=== PATIENT | female | born 1945 | race Caucasian/White ===

== ENCOUNTER 2016-11-05 18:31 | Emergency (ER) | payer SELFPAY ==
[2016-11-05] MEDS ORDERED: Morphine INJ* 4 MG/ML 1 ML CARPUJECT IV ONE ×2 (20:42→23:45)
[2016-11-05] MEDS ORDERED: Ondansetron INJ* 2 MG/ML VIAL IV ONE (20:43)
[2016-11-05 20:55] LABS: Hematocrit 45 % (35-47); Hemoglobin 15.7 g/dl (12.0-16.0); Mean Corpuscular HGB Conc 35 g/dl (31-36); Mean Corpuscular Hemoglobin 31 pg (27-31); Mean Corpuscular Volume 88 fL (80-97); Mean Platelet Volume 8 um3 (7.4-10.4); Red Blood Count 5.09 10^6/ul (4.0-5.4); Red Cell Distribution Width 14 % (10.5-15); White Blood Count 9.4 10^3/ul (3.5-10.8)
[2016-11-05 21:09] LABS: Albumin 4.3 g/dL (3.2-5.2); BUN/Creatinine Ratio 12.7 (8-20); Calcium 9.9 mg/dL (8.6-10.3); EGFR Non-African American 81.6 (>60); Globulin 2.9 g/dL (2-4); Potassium 3.9 mmol/L (3.5-5.0); Total Bilirubin 1.1 mg/dL (0.2-1.0); Total Protein 7.2 g/dL (6.4-8.9)
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
[2016-11-05] MEDS ORDERED: Iohexol 300* (CONTRAST) 10 ML SDV IV ONE (22:27)
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
[2016-11-05] MEDS ORDERED: Mometasone/Formoter 200/5 MDI INH SCH (23:45)
[2016-11-06 00:53] LABS: Hematocrit 43 % (35-47); Hemoglobin 14.9 g/dl (12.0-16.0); Mean Corpuscular HGB Conc 35 g/dl (31-36); Mean Corpuscular Hemoglobin 31 pg (27-31); Mean Corpuscular Volume 88 fL (80-97); Mean Platelet Volume 7 um3 (7.4-10.4); Red Blood Count 4.84 10^6/ul (4.0-5.4); Red Cell Distribution Width 14 % (10.5-15); White Blood Count 9.7 10^3/ul (3.5-10.8)
[2016-11-06] MEDS ORDERED: oxyCODONE/Acetamin 5/325 MG* TAB PO ONE (01:09)
[2016-11-06 02:00] VITALS: BP 139/62
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
== END 2016-11-06 02:00 | disposition home or self-care (01) ==
LOC: ED 18:31
DX: R07.89 Other chest pain (principal); M79.641 Pain in right hand; R10.12 Left upper quadrant pain; S60.221A Contusion of right hand, initial encounter; V59.49XA Driver of pick-up truck or van injured in collision with other motor vehicles in traffic accident, initial encounter; Y92.9 Unspecified place or not applicable; J44.9 Chronic obstructive pulmonary disease, unspecified; Z88.2 Allergy status to sulfonamides; J45.909 Unspecified asthma, uncomplicated; I25.10 Atherosclerotic heart disease of native coronary artery without angina pectoris; K44.9 Diaphragmatic hernia without obstruction or gangrene; R16.0 Hepatomegaly, not elsewhere classified; K57.90 Diverticulosis of intestine, part unspecified, without perforation or abscess without bleeding
CPT/HCPCS: 36415; 70450; 71260; 72125; 74177; 80053; 85025; 96374; 96375; 96376; 99283; A9270-GY; J2270; J2405; Q9967

== ENCOUNTER 2019-04-23 13:30 | Day surgery (SDC) | payer MEDICARE ==
[~2019-04-23 13:30] MED LIST: Buffered Lidocaine 1% SYRIN* 1 ML/SYRINGE INTRADERM ONE; Lactated Ringers 1000 ML Bag* 1,000 ML IV SCH
[2019-04-23] MEDS ORDERED: ceFAZolin 2 GM in NS PREMIX(*) 2 GM/100 ML BAG IVPB ONE (14:20)
[2019-04-23] MEDS ORDERED: Heparin VIAL(*) 5000 UNITS/ML VIAL (FIVE THOUSAND) ONE (14:20)
[2019-04-23] MEDS ORDERED: KETAMINE HCL* 50 MG/ML 10 ML VIAL ONE ×2 (15:05→17:15)
[2019-04-23] MEDS ORDERED: Midazolam* 1 MG/ML 2 ML VIAL (2 MG) ONE ×2 (15:05→17:15)
[2019-04-23] MEDS ORDERED: Propofol* 500 MG/50 ML BTL ONE (15:05)
[2019-04-23] MEDS ORDERED: Naloxone* 0.4 MG/ML 1 ML VIAL IV PRN (15:24)
[2019-04-23] MEDS ORDERED: Metoclopramide IV* 5 MG/ML 2 ML VIAL IV PRN (15:24)
[2019-04-23] MEDS ORDERED: Acetaminophen TAB* 325 MG PO PRN (15:24)
[2019-04-23] MEDS ORDERED: fentaNYL* 50 MCG/ML 2 ML VIAL (100 MCG VIAL) IV PRN (15:24)
[2019-04-23] MEDS ORDERED: oxyCODONE TAB* 5 MG TAB PO PRN (15:24)
[2019-04-23] MEDS ORDERED: fentaNYL* 50 MCG/ML 2 ML VIAL (100 MCG VIAL) ONE (17:15)
[2019-04-23] MEDS ORDERED: Bupivacaine 0.25% SDV PF* 10 ML VIAL INJ ONE (18:06)
[2019-04-23] MEDS ORDERED: Gelfoam 12-7 ADSORBABL SPONGE ONE ×3 (18:06→18:53)
[2019-04-23] MEDS ORDERED: Bacitracin OINTMENT* 0.5% 0.5 oz TUBE ONE (18:52)
[2019-04-23] MEDS ORDERED: Labetalol IV* 5 MG/ML 20 ML VIAL ONE (18:54)
[2019-04-23] MEDS ORDERED: Propofol* 10 MG/ML 20 ML BTL ONE (18:54)
[2019-04-23] MEDS ORDERED: Lidocaine 2% PF * 5 ML VIAL ONE (18:54)
[2019-04-23 19:28] VITALS: BP 160/102
--- NOTE | 2019-04-24 01:57 | OP ---
DATE OF OPERATION: 04/23/19 - [facility] DATE OF : 49 ATTENDING SURGEON: Jesus Manuel Paris MD. BODY MECHANIC: No first helper. PRE-OP DIAGNOSIS: Rectal mass. POST-OP DIAGNOSIS: Rectal polyp. OPERATIVE PROCEDURE: Rectal examination under anesthesia, transanal excision of rectal polyp. INDICATIONS FOR PROCEDURE: Noted polyp on colonoscopy. Unable to evaluate in the office due to discomfort.. Risks including, but not limited to, bleeding, infection explained to the patient who seemed to understand and agreed to the procedure and all questions were answered. DESCRIPTION OF PROCEDURE: The patient was taken to the operating room, placed in the prone ivy-knife position. Sedation was given by the anesthesiologist, MAC anesthesia. Preoperative antibiotics were given. The perianal area was prepped and draped. A time-out was performed indicating correct patient, correct procedure. Digital rectal examination revealed no palpable masses. The rectal retractor was placed in the rectum and all 4 quadrants were evaluated. Approximately 1.5 to 2 cm flat polyp was noted on the right lateral aspect near the anal verge. Plain local anesthetic was administered under and around this. It was grasped with an Allis forceps and sharply excised with Metzenbaum scissors. Bovie cautery was used for hemostasis and the mucosal defect was closed with a running, locking 3-0 chromic stitch. Antibiotic ointment with Gelfoam was applied. EBL minimal. Hemostasis was intact with Gelfoam packing held some pressure, and gauze and ABD pad were placed over the anus and taped in place. She tolerated the procedure well. She was taken to recovery room in stable condition. [id number] #: [id number] [facility] CENTERAtilio
== END 2019-04-23 19:49 | disposition home or self-care (01) ==
LOC: OR 13:30
PROVIDERS: ATTEND Surgery
DX: D12.8 Benign neoplasm of rectum (principal); J44.9 Chronic obstructive pulmonary disease, unspecified; F17.210 Nicotine dependence, cigarettes, uncomplicated; K57.30 Diverticulosis of large intestine without perforation or abscess without bleeding; I71.4 Abdominal aortic aneurysm, without rupture; R73.02 Impaired glucose tolerance (oral)
CPT/HCPCS: 88305; A9270-GY; J0690; J1644; J2250; J2704; J3010; J3490